=== PATIENT | female | born 1990 | race Caucasian/White ===

== ENCOUNTER 2017-02-14 19:21 | Emergency (ER) | payer OTHER ==
--- NOTE | ~2017-02-14 | ER ---
PATIENT'S NAME: SANDRINE RODRIGUEZ [facility] AGE: 26 Y [address] ROOM: [place] [address] LOCATION: ED ADMIT DATE: 02/14/2017 ER/Outpatient Report DISCHARGE DATE: 02/14/2017 FAMILY PHYSICIAN: PHYSICIAN, NO ATTENDING PHYSICIAN: Hardik Morgan Time of Arrival: 1938 hours. Time of Exam: 1952 hours. CHIEF COMPLAINT: Pelvic pain. HISTORY OF PRESENT ILLNESS: The patient states she has had suprapubic pain for the past 2 days. She does have an IUD and is concerned that it may be displaced, her strings seemed different than what they had been. She states the pain has been constant. She has been nauseated, but no vomiting. Has not had fever or chills. States she had similar pain to this in the last 2 days of her period, but her last period ended on 02/02/2017 and pain had gone away. She denies any pain with urination. Does not have any pain with bowel movements. She states the pain is worse when her bladder is full. ALLERGIES: SUPRAX. CURRENT MEDICATIONS: None. PAST MEDICAL HISTORY: Crohn disease. PAST SURGICAL HISTORY: Appendectomy, ear tubes, and tonsillectomy. SOCIAL HISTORY: Denies use of drugs, alcohol, or tobacco. States that they are currently in the process of moving from [place] to [place]. She is here staying with family for the next couple of weeks, then they will be moving to [place]. She reports her is in the and they are being re-stationed in [place]. She does not have a primary provider. PHYSICAL EXAMINATION: VITAL SIGNS: She weighs 58.5 kg. Blood pressure is 114/56, pulse is 67, respirations 16, temperature of 99.3 tympanic, and O2 saturations 100% on room air. PATIENT'S NAME: SANDRINE RODRIGUEZ [facility] AGE: 26 Y [address] ROOM: [place] [address] LOCATION: ED ADMIT DATE: 02/14/2017 ER/Outpatient Report DISCHARGE DATE: 02/14/2017 FAMILY PHYSICIAN: PHYSICIAN, NO ATTENDING PHYSICIAN: Hardik Morgan GENERAL: She is awake, alert, and oriented x4. SKIN: [place], warm, and dry. RESPIRATIONS: Even and nonlabored. Lung sounds are clear throughout. HEART: Regular rate and rhythm. ABDOMEN: Soft and nondistended. Bowel sounds are present. She is tender in the lower abdominal area to palpate. LABORATORY AND DIAGNOSTIC STUDIES: CBC is within normal limits. Chem panel is within normal limits. Clean-catch UA shows leukocytes but the micro 0-2 white blood cells and negative bacteria. Did do an ultrasound of the pelvis, report is good blood flow to the ovaries, does have a small follicle on the right, has minimal amount of free fluid in the cul-de-sac. EMERGENCY ROOM COURSE: The patient was given Toradol 30 mg IM. IMPRESSION: Pelvic pain. PLAN: Home, rest, fluids. Encouraged to do ibuprofen on a regular basis for the next 5 days. If her symptoms do not improve in the next 2 to 3 days, she should follow up with her primary provider or [facility]. She verbalized understanding. GO PARRISH APRN FOR MD [facility] CHIU/archana /[id number] d: 02/15/17 0031 t: 03/03/17 0549, OUTPATIENT REPORT
[~2017-02-14 19:21] MED LIST: CIMZIA400 MG SUB-Q; MOTRIN600 MG PO; NORCO 5-325 MG1 TAB PO
[2017-02-14 19:58] LABS: BILIRUBIN URINE NEGATIVE (NEGATIVE); BLOOD URINE NEGATIVE /UL (NEGATIVE); COLOR URINE YELLOW (YELLOW); GLUCOSE URINE NEGATIVE (NEGATIVE); KETONE URINE NEGATIVE (NEGATIVE); LEUKOCYTES URINE 25 /UL (NEGATIVE); NITRITE URINE NEGATIVE (NEGATIVE); PROTEIN URINE NEGATIVE (NEGATIVE); TURBIDITY URINE CLEAR (CLEAR); UROBILINOGEN URINE NORMAL (NORMAL)
[2017-02-14 20:08] LABS: RBC URINE NEGATIVE #/HPF (NEGATIVE); WBC URINE 0-2 #/HPF (NEGATIVE)
[2017-02-14 20:09] LABS: BACTERIA URINE NEGATIVE (NEGATIVE)
[2017-02-14 20:22] LABS: BASOPHIL % 0.3 %; EOSINOPHIL # 0.2 K/uL (0.0-0.5); EOSINOPHIL % 2.1 %; HEMATOCRIT 35.9 % (33.0-46.0); HEMOGLOBIN 11.8 g/dL (11.0-15.0); IMMATURE GRANULOCYTE % 0.1 %; LYMPHOCYTE # 3.2 K/uL (0.8-4.0); MCH 27.9 pg (27.0-34.0); MCHC 32.9 gm/dL (32.0-36.5); MCV 84.9 fl (83.0-98.0); MONOCYTE # 0.7 K/uL (0.0-1.0); MONOCYTE % 9.4 %; NEUTROPHIL # (ANC) 3.2 K/uL (1.8-7.8); NEUTROPHIL % 44.1 %; NRBC % 0 /100WBC (0-0.00); PLATELET COUNT 278 K/uL (150-450); RBC 4.23 M/uL (3.50-5.00); RDW-CV 14.6 % (11.9-14.6); WBC 7.3 K/uL (4.0-11.0)
[2017-02-14 20:38] LABS: ALBUMIN 3.9 gm/dL (3.5-5.0); ALK PHOS 42 IU/L (33-138); ALT 17 IU/L (12-78); ANION GAP 8.6 (10.0-19.0); AST 12 IU/L (10-40); BLOOD UREA NITROGEN 11 mg/dL (6-24); CALCIUM 8.1 mg/dL (8.5-10.5); CHLORIDE 108 mMol/L (96-110); CO2 29 mMol/L (22-32); CREATININE 0.7 mg/dL (0.5-1.1); POTASSIUM 3.6 mMol/L (3.7-5.1); SODIUM 142 mMol/L (135-145); TOTAL BILIRUBIN 0.4 mg/dL (0.0-1.5)
== END 2017-02-14 21:50 | disposition disaster alternative care site (69) ==
LOC: GMED 19:21
PROVIDERS: Emergency Medicine; Nurse Practitioner Family
DX: R10.2 Pelvic and perineal pain (principal); K50.90 Crohn's disease, unspecified, without complications; Z88.1 Allergy status to other antibiotic agents; Z90.49 Acquired absence of other specified parts of digestive tract; Z96.22 Myringotomy tube(s) status; Z90.89 Acquired absence of other organs
CPT/HCPCS: J1885